=== PATIENT | male | born 1980 | race Caucasian/White ===

== ENCOUNTER 2021-06-22 09:35 | Outpatient (CLI) | payer BC, SELFPAY ==
--- NOTE | ~2021-06-22 | MR_ITS ---
EXAMINATION: MR shoulder RT w con DATE: 06/22/2021 12:12 INDICATION: Right shoulder pain TECHNIQUE: Magnetic resonance imaging (MRI) of the right shoulder was performed following intra-elder cular gadolinium contrast injection and without intravenous contrast. Details of the glenohumeral canelo nt injection have been dictated separately. Sequences included axial T2-weighted FS FSE, axial T1-we ighted FS FSE, coronal oblique T1-weighted FS FSE, coronal oblique T2-weighted FSE, sagittal T2-weigh dougie FS FSE, sagittal T1-weighted FSE, and ABER (abduction external rotation) T1-weighted FS FSE. COMPARISON: None. FINDINGS: Coracoacromial arch: The acromion undersurface is curved in morphology (type II). There is mild thickening of the coracoac romial ligament along its acromial insertion.. Acromioclavicular joint is normal. Rotator cuff: Moderate tendinopathy of the conjoined portion of the supraspinatus and infraspinatus tendons with mi ld shallow bursal sided fraying without a discrete fluid signal intensity tear defect. Tendinopathy o f the more anterior portion of the supraspinatus tendon and posterior portion of the infraspinatus te ndon. The rotator cuff articular surfaces appears intact with no intrasubstance imbibition of intra-a rticular contrast. Mild tendinopathy of the anterior infraspinatus tendon without discrete tear. The teres minor and subscapularis tendons are normal. Normal rotator cuff muscle bulk and signal. Biceps tendon, glenoid labrum and glenohumeral cartilage: Long head of the biceps tendon is normal. There is a normal anterosuperior sublabral foramen. There i s a superior, anterior to posterior tear of the glenoid labrum (SLAP tear) which extends from the 12: 30 position anteriorly to the 10:00 position posteriorly. Contrast-filled para labral cyst at the per iphery of the 12:00 position of the labrum which measures 8 mm AP and 5 x 2 mm in maximal orthogonal dimensions. Glenohumeral cartilage is normal. Bones and other: Low signal intensity bone island at the humeral head. Marrow signal is otherwise normal with no edema , fracture or pathologic marrow replacing process. Small amount of fluid in the subacromial/subdeltoi d bursa consistent with mild bursitis. IMPRESSION: 1. Moderate tendinopathy conjoined portion of the supraspinatus and infraspinatus tendons with shallo w bursal sided fraying but without a discrete tear defect. 2. SLAP tear at the superior to posterior superior glenoid labrum with small para labral cyst. 3. Mild subacromial/subdeltoid bursitis. Reviewed, dictated and finalized at location A. IMPRESSION: 1. Moderate tendinopathy conjoined portion of the supraspinatus and infraspinat us tendons with shallow bursal sided fraying but without a discrete tear defect . 2. SLAP tear at the superior to posterior superior glenoid labrum with small pa ra labral cyst. 3. Mild subacromial/subdeltoid bursitis.
--- NOTE | ~2021-06-22 | XR_ITS ---
EXAMINATION: XR lg joint inject/asp w image DATE: 06/22/2021 10:48 INDICATION: Right shoulder pain TECHNIQUE: A time-out was performed to verify the patient's name, date of , and procedure to b e performed. The procedure including the risks, benefits, and alternatives was discussed with the pat ient. Risks discussed included bleeding and infection. The patient understood the risks and agreed to proceed. The skin overlying the rotator cuff interval the right glenohumeral joint was prepped and draped in usual sterile fashion. Anesthetic was administered with 1% lidocaine subcutaneously. A 22 G needle was advanced under fluoroscopic guidance into the joint. Injection of 1 mL of Omnipaque 24 0 confirmed intra-articular position of the needle. Subsequently, injectate consisting of 12 mL of 2 :1:1 mixture of sterile saline:Omnipaque 240:1% lidocaine mixed 200:1 with 529 mg/mL Multihance gadol inium contrast was injected. Intra-articular distribution of contrast was confirmed with intermittent fluoroscopy. The needle was removed and the entry site was cleaned and dressed. There were no immed iate complications. Fluoroscopy exposure time was 3.2 minutes. The total number of images was 88. FINDINGS: Real-time fluoroscopy demonstrates the needle in the right glenohumeral joint. IMPRESSION: 1. Successful right glenohumeral joint injection of dilute gadolinium contrast mixture perceptive MRI arthrogram which will be dictated separately. Reviewed, dictated and finalized at location A.
== END 2021-06-22 09:36 | disposition home or self-care (01) ==
PROVIDERS: PCP Family Medicine; Visit Provider Orthopaedic Surgery
DX: S43.431A Superior glenoid labrum lesion of right shoulder, initial encounter (principal); M75.51 Bursitis of right shoulder
CPT/HCPCS: 20610; 73222; 77002; A9577; Q9966